=== PATIENT | female | born 1975 | race Caucasian/White ===

== ENCOUNTER 2019-12-09 11:40 | Emergency (ER) | payer OTHER, SELFPAY ==
[2019-12-09 13:00] LABS: Absolute Lymphocytes (CBC) 1.4 K/uL (0.7-4.9); Basophils % 0.3 % (0-1.3); Hematocrit 42.1 % (36.0-45.0); Lymphocytes % 11.8 % (15.3-44.8); MPV 8.3 fL (7.6-11.3); RBC Red Blood Cell Count 5.15 M/uL (3.86-4.86)
[2019-12-09 13:22] LABS: ALT/SGPT 32 U/L (12-78); AST/SGOT 16 U/L (15-37); Albumin 4.1 g/dL (3.4-5.0); Alkaline Phosphatase 99 U/L (45-117); BUN Blood Urea Nitrogen 10 mg/dL (7-18); Bicarbonate 29 mmol/L (21-32); Bilirubin Direct 0.1 mg/dL (0-0.2); Bilirubin Total 0.4 mg/dL (0.2-1.0); Glucose Level 85 mg/dL (74-106); Magnesium 2.1 mg/dL (1.8-2.4); NT PRO-BNP 58 pg/mL (<125); Potassium 3.6 mmol/L (3.5-5.1); Protein, Total 8.1 g/dL (6.4-8.2); Sodium Level 140 mmol/L (136-145); Troponin (Emerg Dept Use Only) < 0.02 ng/mL (0.0-0.045)
--- NOTE | 2019-12-09 13:22 | RAD REPORT ---
EXAM DESCRIPTION: CT - Head Brain Wo Cont - 12/09/2019 1:08 pm CLINICAL HISTORY: DIZZINESS Headache, drowsiness. COMPARISON: No comparisons TECHNIQUE: All CT scans are performed using dose optimization technique as appropriate and may inclu de automated exposure control or mA/KV adjustment according to patient size. FINDINGS: No intracranial hemorrhage, hydrocephalus or extra-axial fluid collection.No areas of brai n edema or evidence of midline shift. The paranasal sinuses and mastoids are clear except for a 11 mm mucous retention cyst or polyp in the left maxillary antrum. The calvarium is intact. IMPRESSION: No acute intracranial abnormality.
[2019-12-09 13:37] LABS: Urine Blood NEGATIVE (NEG); Urine Glucose NEGATIVE (NEG); Urine Protein NEGATIVE (NEG); Urine Specific Gravity <1.005 (1.005-1.030)
[2019-12-09] MEDS ORDERED: NA CHLORIDE 0.9% 100 ML IV ONE (13:48)
[2019-12-09] MEDS ORDERED: CEFTRIAXONE 1000 MG/VIAL ONE (13:48)
[2019-12-09] MEDS ORDERED: NA CHLORIDE 0.9% 1,000 ML ONE (13:48)
--- NOTE | 2019-12-09 14:02 | RAD REPORT ---
EXAM DESCRIPTION: - - 12/09/2019 1:39 pm CLINICAL HISTORY: DIZZINESS Headache, drowsiness, syncope COMPARISON: No comparisons TECHNIQUE: Real-time sonographic evaluation of both carotid systems was performed. Doppler interroga tion was performed with waveform tracing bilaterally. FINDINGS: Normal high resistance waveforms are noted in both external carotid arteries. The common c arotid arteries and internal carotid arteries show normal low resistance waveforms. No significant plaque formation is seen. Peak systolic and end diastolic velocity values and the ICA/ CCA ratios are in the non-hemodynamically significant range. Antegrade flow seen in both vertebral arteries. IMPRESSION: No significant atherosclerotic changes noted. No evidence of a hemodynamically significant stenosis.
--- NOTE | 2019-12-09 14:03 | RAD REPORT ---
EXAM DESCRIPTION: RAD - Chest Single View - 12/09/2019 1:45 pm CLINICAL HISTORY: COUGH Chest pain. COMPARISON: CHEST SINGLE VIEW dated 03/01/2011 FINDINGS: Portable technique limits examination quality. The lungs are grossly clear. The heart is normal in size. No displaced fractures.Mild levoscoliosis o f the upper thoracic spine. IMPRESSION: No acute intrathoracic process suspected.
--- NOTE | 2019-12-09 14:43 | EKG ---
Test Date: 2019-12-09 Test Time: 13:54:07 Coin Machine Service Repairer: JOSS MEASUREMENT RESULTS: Intervals: Rate: 84 PA: 154 QRSD: 82 QT: 374 QTc: 441 [place]: P: 19 PA: 154 QRS: -4 T: 51 INTERPRETIVE STATEMENTS: Normal sinus rhythm Normal ECG Compared to ECG 03/01/2011 13:02:17 No significant changes Electronically Signed On 12-09-19 14:42:21 ESTHETICIAN/SPA COORDINATOR by Mina Castillo
--- NOTE | 2019-12-09 15:18 | ER ---
Nurse's Notes [facility] Name: Daria Forte Age: 44 yrs Sex: Female : 1975 Arrival Date: 12/09/2019 Time: 11:43 Bed 25 Private MD: Diagnosis: Dizziness and giddiness;Urinary tract infection, site not specified;Essential (primary) hypertension Presentation: 12/09 11:45 Presenting complaint: Patient states: dizziness, shakiness, head tingling all over x 2 sv days. Today reports "I almost passed out.". Transition of care: patient was not received from another setting of care. Onset of symptoms was December 07, 2019. Risk Assessment: Do you want to hurt yourself or someone else? Patient reports no desire to harm self or others. Care prior to arrival: None. 11:45 Method Of Arrival: Ambulatory sv 11:45 Acuity: SONIA 2 sv 11:45 Initial Sepsis Screen: Does the patient meet any 2 criteria? No. Patient's initial ls4 sepsis screen is negative. Does the patient have a suspected source of infection? No. Patient's initial sepsis screen is negative. Triage Assessment: 12:15 General: Appears in no apparent distress. Behavior is calm, cooperative. ls4 12:15 Neuro: No deficits noted. Cardiovascular: No deficits noted. Respiratory: No deficits ls4 noted. 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 - Family history:: not pertinent. - Social history:: Smoking status: Patient/guardian denies using tobacco. - Ebola Screening: : No symptoms or risks identified at this time. Screenin:45 Abuse screen: Denies threats or abuse. Denies injuries from another. Nutritional ls4 screening: No deficits noted. Tuberculosis screening: No symptoms or risk factors identified. Fall Risk None identified. Assessment: 12:30 General: Appears in no apparent distress. comfortable, Behavior is calm, cooperative, ls4 appropriate for age. Pain: Denies pain. Neuro: No deficits noted. Cardiovascular: No deficits noted. Respiratory: No deficits noted. 13:30 Reassessment: Patient appears in no apparent distress at this time. Patient and/or ls4 family updated on plan of care and expected duration. Pain level reassessed. Patient is alert, oriented x 3, equal unlabored respirations, skin warm/dry/pink. Vital Signs: 11:46 BP 164 / 108; Pulse 94; Resp 20; Temp 97.3; Pulse Ox 99% ; Weight 113.4 kg; Height 5 sv ft. 8 in. (172.72 cm); 13:00 BP 138 / 64; Pulse 78; Resp 14; Pulse Ox 100% on R/A; Pain 0/10; ls4 14:00 BP 136 / 72; Pulse 78; Resp 14; Pulse Ox 99% ; ls4 15:00 BP 142 / 78; Pulse 76; Resp 14; Temp 97.9; Pulse Ox 100% on R/A; ls4 11:46 Body Mass Index 38.01 (113.40 kg, 172.72 cm) sv ED Course: 11:43 Patient arrived in ED. as 11:45 Triage completed. sv 11:45 Patient has correct armband on for positive identification. Placed in gown. Bed in low ls4 position. Call light in reach. Side rails up X2. school bus monitor on. Pulse ox on. NIBP on. Warm blanket given. 11:45 No provider procedures requiring assistance completed. ls4 11:46 Arm band placed on. sv 12:08 Ishan Davis MD is Attending Physician. javier 12:51 Initial lab(s) drawn, by sd, sent to lab. Inserted saline lock: 20 gauge in left lt1 antecubital area, using aseptic technique. 13:07 CT Head Brain wo Cont In Process Unspecified. EDMS 13:24 Yessica Fitch, RN is Primary Nurse. ls4 13:40 Ultrasound completed. Patient tolerated well. lc3 13:41 Patient moved to radiology via stretcher. lc3 13:42 US Carotid Artery Bilateral In Process Unspecified. EDMS 13:45 XRAY Chest (1 view) In Process Unspecified. EDMS 14:24 EKG done, by diesel truck technician. reviewed by Ishan Davis MD. tc 15:18 Franko Arrington MD is Referral Physician. javier 15:20 Smith Steen MD is Referral Physician. javier 15:52 IV discontinued, intact, bleeding controlled, No redness/swelling at site. Pressure ls4 dressing applied. Administered Medications: 13:47 Drug: NS 0.9% 1000 ml Route: IV; Rate: 1 bolus; Site: left antecubital; ls4 14:47 Follow up: IV Status: Completed infusion; IV Intake: 1000ml ls4 13:47 Drug: Rocephin 1 grams Route: IV; Rate: per protocol; Site: left antecubital; ls4 13:57 Follow up: Response: No adverse reaction; IV Status: Completed infusion; IV Intake: [id number] Intake: 13:57 IV: 10ml; Total: 10ml. ls4 14:47 IV: 1000ml; Total: 1010ml. ls4 Outcome: 15:18 Discharge ordered by . [facility] 15:52 Patient left the ED. 4 15:52 Discharged to home ambulatory, with family. ls4 15:52 Condition: stable 15:52 Discharge instructions given to patient, family, Instructed on discharge instructions, follow up and referral plans. medication usage, Demonstrated understanding of instructions, follow-up care, medications, Prescriptions given X 2. Addendum: 12/13/2019 07:11 Addendum: Culture Results: Positive urine culture. No further action required. Bacteria e b sensitive to prescribed antibiotic. Signatures: Dispatcher [employer] EDErika De La Cruz RN RN sv Anderson, Corey, MD MD cha Martinez, Amelia as Callis, Tiffany, classroom aide EKG [facility] Carlos Velazco Elizabeth eb Stewart, Lisa, RN RN ls4 Nina Nunez lt1 Corrections: (The following items were deleted from the chart) 12/09 11:46 11:45 Acuity: SONIA 3 [facility]
--- NOTE | 2019-12-09 15:18 | EDPHYS ---
Physician Documentation [facility] [place], [place] Name: Daria Forte Age: 44 yrs Sex: Female : 1975 Arrival Date: 12/09/2019 Time: 11:43 Bed 25 Private MD: ED Physician Ishan Davis HPI: 12/09 12:35 This 44 yrs old Female presents to ER via Ambulatory with complaints of javier Dizziness. 12:35 The patient presents with dizziness. Onset: The symptoms/episode began/occurred 2 javier day(s) ago. Context: occurred at home. Modifying factors: The symptoms are alleviated by nothing, the symptoms are aggravated by nothing. Associated signs and symptoms: The patient has no apparent associated signs or symptoms. Severity of symptoms: At their worst the symptoms were mild in the emergency department the symptoms are unchanged. Patient's baseline: Neuro: alert and fully oriented. The patient has not experienced similar symptoms in the past. 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 - Family history:: not pertinent. - Social history:: Smoking status: Patient/guardian denies using tobacco. - Ebola Screening: : No symptoms or risks identified at this time. ROS: 12:35 Constitutional: Negative for fever, chills, and weight loss, Eyes: Negative for injury, javier pain, redness, and discharge, ENT: Negative for injury, pain, and discharge, Neck: Negative for injury, pain, and swelling, Cardiovascular: Negative for chest pain, palpitations, and edema, Respiratory: Negative for shortness of breath, cough, wheezing, and pleuritic chest pain, Abdomen/GI: Negative for abdominal pain, nausea, vomiting, diarrhea, and constipation, Back: Negative for injury and pain, : Negative for injury, bleeding, discharge, and swelling, MS/Extremity: Negative for injury and deformity, Skin: Negative for injury, rash, and discoloration, Psych: Negative for depression, anxiety, suicide ideation, homicidal ideation, and hallucinations, Allergy/Immunology: Negative for hives, rash, and allergies, Endocrine: Negative for neck swelling, polydipsia, polyuria, polyphagia, and marked weight changes, Hematologic/Lymphatic: Negative for swollen nodes, abnormal bleeding, and unusual bruising. 12:35 Neuro: Positive for dizziness. Exam: 12:35 Constitutional: This is a well developed, well nourished patient who is awake, alert, javier and in no acute distress. Head/Face: Normocephalic, atraumatic. Eyes: Pupils equal round and reactive to light, extra-ocular motions intact. Lids and lashes normal. Conjunctiva and sclera are non-icteric and not injected. Cornea within normal limits. Periorbital areas with no swelling, redness, or edema. ENT: Nares patent. No nasal discharge, no septal abnormalities noted. Tympanic membranes are normal and external auditory canals are clear. Oropharynx with no redness, swelling, or masses, exudates, or evidence of obstruction, uvula midline. Mucous membranes moist. Neck: Trachea midline, no thyromegaly or masses palpated, and no cervical lymphadenopathy. Supple, full range of motion without nuchal rigidity, or vertebral point tenderness. No Meningismus. Chest/axilla: Normal chest wall appearance and motion. Nontender with no deformity. No lesions are appreciated. Cardiovascular: Regular rate and rhythm with a normal S1 and S2. No gallops, murmurs, or rubs. Normal PMI, no JVD. No pulse deficits. Respiratory: Lungs have equal breath sounds bilaterally, clear to auscultation and percussion. No rales, rhonchi or wheezes noted. No increased work of breathing, no retractions or nasal flaring. Abdomen/GI: Soft, non-tender, with normal bowel sounds. No distension or tympany. No guarding or rebound. No evidence of tenderness throughout. Back: No spinal tenderness. No costovertebral tenderness. Full range of motion. Skin: Warm, dry with normal turgor. Normal color with no rashes, no lesions, and no evidence of cellulitis. MS/ Extremity: Pulses equal, no cyanosis. Neurovascular intact. Full, normal range of motion. Neuro: Awake and alert, GCS 15, oriented to person, place, time, and situation. Cranial nerves II-XII grossly intact. Motor strength 5/5 in all extremities. Sensory grossly intact. Cerebellar exam normal. Normal gait. Psych: Awake, alert, with orientation to person, place and time. Behavior, mood, and affect are within normal limits. Vital Signs: 11:46 BP 164 / 108; Pulse 94; Resp 20; Temp 97.3; Pulse Ox 99% ; Weight 113.4 kg; Height 5 sv ft. 8 in. (172.72 cm); 13:00 BP 138 / 64; Pulse 78; Resp 14; Pulse Ox 100% on R/A; Pain 0/10; ls4 14:00 BP 136 / 72; Pulse 78; Resp 14; Pulse Ox 99% ; ls4 15:00 BP 142 / 78; Pulse 76; Resp 14; Temp 97.9; Pulse Ox 100% on R/A; ls4 11:46 Body Mass Index 38.01 (113.40 kg, 172.72 cm) sv MDM: 12:08 Patient medically screened. [facility] 12:37 Data reviewed: vital signs, nurses notes, lab test result(s), EKG, radiologic studies, [facility] CT scan, doppler, plain films. 12/09 12:35 Order name: Basic Metabolic Panel; Complete Time: 13:23 [facility] 12/09 12:35 Order name: CBC with Diff; Complete Time: 13:22 [facility] 12/09 12:35 Order name: LFT's; Complete Time: 13:23 [facility] 12/09 12:35 Order name: Magnesium; Complete Time: 13:23 [facility] 12/09 12:35 Order name: NT PRO-BNP; Complete Time: 13:23 [facility] 12/09 12:35 Order name: Troponin (emerg Dept Use Only); Complete Time: 13:23 [facility] 12/09 12:35 Order name: XRAY Chest (1 view); Complete Time: 15:09 [facility] 12/09 12:35 Order name: EKG; Complete Time: 12:36 [facility] 12/09 12:35 Order name: CT Head Brain wo Cont; Complete Time: 13:23 [facility] 12/09 12:35 Order name: US Carotid Artery Bilateral; Complete Time: 15:09 [facility] 12/09 12:35 Order name: Urine Culture [facility] 12/09 13:24 Order name: Urine Dipstick--Ancillary (enter results); Complete Time: 15:09 12/09 12:35 Order name: EKG - Nurse/Tech; Complete Time: 14:57 [facility] 12/09 12:35 Order name: IV Saline Lock; Complete Time: 12:50 [facility] 12/09 12:35 Order name: Labs collected and sent; Complete Time: 12:50 [facility] 12/09 12:35 Order name: O2 Per Protocol; Complete Time: 12:50 [facility] 12/09 12:35 Order name: O2 Sat Monitoring; Complete Time: 12:50 [facility] 12/09 12:35 Order name: Urine Dipstick-Ancillary (obtain specimen); Complete Time: 13:55 [facility] 12/09 12:35 Order name: Urine Test (obtain specimen); Complete Time: 13:55 [facility] Administered Medications: 13:47 Drug: NS 0.9% 1000 ml Route: IV; Rate: 1 bolus; Site: left antecubital; ls4 14:47 Follow up: IV Status: Completed infusion; IV Intake: 1000ml ls4 13:47 Drug: Rocephin 1 grams Route: IV; Rate: per protocol; Site: left antecubital; ls4 13:57 Follow up: Response: No adverse reaction; IV Status: Completed infusion; IV Intake: [id number] Disposition: 12/09/19 15:18 Discharged to Home. Impression: Dizziness and giddiness, Urinary tract infection, site not specified, Essential (primary) hypertension. - Condition is Stable. - Discharge Instructions: Dizziness, Urinary Tract Infection, Adult, Vertigo, Urinary Tract Infection, Adult, Cmui-ze-Fvnh, Hypertension, Nrnu-pa-[id number], How to Take Your Blood Pressure, Rtbi-ic-Dlfl, Dizziness, Gnss-ap-Tvtu, Managing Your Hypertension. - Prescriptions for Meclizine 25 mg Oral Tablet - take 1 tablet by ORAL route every 8 hours As needed; 30 tablet. Macrobid 100 mg Oral Capsule - take 1 capsule by ORAL route every 12 hours for 7 days; 14 capsule. - Medication Reconciliation Form, Thank You Letter, Antibiotic Education, Prescription Opioid Use form. - Follow up: Private Physician; When: 2 - 3 days; Reason: Recheck today's complaints, Continuance of care, Re-evaluation by your physician. Follow up: Franko Arrington MD; When: 2 - 3 days; Reason: Recheck today's complaints, Re-evaluation by your physician. Follow up: Smith Steen MD; When: 2 - 3 days; Reason: Recheck today's complaints, Re-evaluation by your physician. - Problem is new. - Symptoms have improved. Signatures: Dispatcher [employer] EDErika De La Cruz, Ishan Myers RN, MD MD cha Stewart, Lisa RN RN ls4 Corrections: (The following items were deleted from the chart) 15:18 15:18 12/09/2019 15:18 Discharged to Home. Impression: Dizziness and giddiness. javier Condition is Stable. Forms are Medication Reconciliation Form, Thank You Letter, Antibiotic Education, Prescription Opioid Use. Follow up: Private Physician; When: 2 - 3 days; Reason: Recheck today's complaints, Continuance of care, Re-evaluation by your physician. Problem is new. Symptoms have improved. [facility] 15:20 15:18 12/09/2019 15:18 Discharged to Home. Impression: Dizziness and giddiness. javier Condition is Stable. Forms are Medication Reconciliation Form, Thank You Letter, Antibiotic Education, Prescription Opioid Use. Follow up: Private Physician; When: 2 - 3 days; Reason: Recheck today's complaints, Continuance of care, Re-evaluation by your physician. Follow up: Franko Arrington; When: 2 - 3 days; Reason: Recheck today's complaints, Re-evaluation by your physician. Problem is new. Symptoms have improved. [facility] 15:20 15:20 12/09/2019 15:18 Discharged to Home. Impression: Dizziness and giddiness; Urinary javier tract infection, site not specified; Essential (primary) hypertension. Condition is Stable. Discharge Instructions: Dizziness, Urinary Tract Infection, Adult, Vertigo, Urinary Tract Infection, Adult, Rfxp-vm-Fuaf, Dizziness, Tasm-qs-Ytcp. Prescriptions for Meclizine 25 mg Oral Tablet - take 1 tablet by ORAL route every 8 hours As needed; 30 tablet, Macrobid 100 mg Oral Capsule - take 1 capsule by ORAL route every 12 hours for 7 days; 14 capsule. and Forms are Medication Reconciliation Form, Thank You Letter, Antibiotic Education, Prescription Opioid Use. Follow up: Private Physician; When: 2 - 3 days; Reason: Recheck today's complaints, Continuance of care, Re-evaluation by your physician. Follow up: Franko Arrington; When: 2 - 3 days; Reason: Recheck today's complaints, Re-evaluation by your physician. Problem is new. Symptoms have improved. javier 15:52 15:20 12/09/2019 15:18 Discharged to Home. Impression: Dizziness and giddiness; Urinary ls4 tract infection, site not specified; Essential (primary) hypertension. Condition is Stable. Discharge Instructions: Dizziness, Urinary Tract Infection, Adult, Vertigo, Urinary Tract Infection, Adult, Aqtp-[id number]-Dijt, Dizziness, Weyw-zb-Lmrr, Hypertension, Fwgk-zr-Qtdg, How to Take Your Blood Pressure, Atgc-vo-Rczs, Managing Your Hypertension. Prescriptions for Meclizine 25 mg Oral Tablet - take 1 tablet by ORAL route every 8 hours As needed; 30 tablet, Macrobid 100 mg Oral Capsule - take 1 capsule by ORAL route every 12 hours for 7 days; 14 capsule. and Forms are Medication Reconciliation Form, Thank You Letter, Antibiotic Education, Prescription Opioid Use. Follow up: Private Physician; When: 2 - 3 days; Reason: Recheck today's complaints, Continuance of care, Re-evaluation by your physician. Follow up: Franko Arrington; When: 2 - 3 days; Reason: Recheck today's complaints, Re-evaluation by your physician. Follow up: Smith Steen; When: 2 - 3 days; Reason: Recheck today's complaints, Re-evaluation by your physician. Problem is new. Symptoms have improved. javier
== END 2019-12-09 15:52 | disposition home or self-care (01) ==
LOC: ER 11:40
DX: N39.0 Urinary tract infection, site not specified (principal); I10 Essential (primary) hypertension
CPT/HCPCS: 36415; 70450; 71045; 80048; 80076; 81003; 83735; 83880; 84484; 85025; 87077; 87086; 87088; 87186; 93005; 93880; 96361; 96374; 99285; J7030